=== PATIENT | female | born 1955 | race Caucasian/White ===

== ENCOUNTER → 2020-02-28 10:27 | Outpatient (CLI) | payer OTHER, SELFPAY ==
[2020-02-28 11:30] LABS: Add Manual Diff / Slide Review NO; Basophils Absolute Auto 100 /uL (0-100); Eosinophils Absolute Auto 300 /uL (0-450); Eosinophils Percent Auto 5.3 % (2-4); Hematocrit 37.4 % (36-46); Hemoglobin 12.8 g/dL (12.0-16.0); Lymphocytes Absolute Auto 1600 /uL (1100-4500); Mean Corpuscular HGB Conc 34.2 % (30-36); Mean Corpuscular Hemoglobin 34.3 PG (26-34); Mean Corpuscular Volume 100.2 fL (80-100); Monocytes Absolute Auto 600 /uL (0-900); Monocytes Percent Auto 9.7 % (3-14); Neutrophils Absolute Auto 3700 /uL (1500-7000); Platelet Count 183 X10^3/uL (150-400); Red Blood Cell Count 3.74 X10^6/uL (4.0-5.2); Red Cell Distribution Width 12.7 % (11.6-14.8); White Blood Cell Count 6.3 X10^3/uL (4.5-11.0)
== END ==
PROVIDERS: Family Provider Family Medicine; PCP Family Medicine; Referring Provider Orthopaedic Surgery Orthopaedic Surgery of the Spine; Visit Provider Orthopaedic Surgery Orthopaedic Surgery of the Spine
DX: Z01.812 Encounter for preprocedural laboratory examination (principal); Z01.818 Encounter for other preprocedural examination
CPT/HCPCS: 36415; 85025; 93005

== ENCOUNTER → 2020-03-16 10:04 | Outpatient (CLI) | payer OTHER, SELFPAY ==
[2020-03-16 11:05] LABS: COVID19 -Nasal RAPID Negative (Negative)
== END ==
PROVIDERS: Family Provider Family Medicine; PCP Family Medicine; Visit Provider Nurse Practitioner
DX: Z20.822 Contact with and (suspected) exposure to COVID-19 (principal)
CPT/HCPCS: 87635

== ENCOUNTER 2020-03-18 06:12 | Inpatient (IN) | payer OTHER, SELFPAY ==
[2020-03-12 08:49] VITALS: BMI 28.4
[2020-03-18] VITALS (16 sets, daily range): BP systolic 96–168; BP diastolic 65–91; PULSE 53–91; RESP 8–20; TEMP 36.3–37.2; O2SAT 93–99; BMI 28.4
--- NOTE | 2020-03-18 | DI.RAD.S_ITS ---
PROCEDURE: XR CERVICAL SPINE 2V OR 3V INDICATIONS: C3-4, 4-5, 5-6 ACDF TECHNIQUE: Two intraoperative fluoroscopic view(s) of the cervical spine were acquired. COMPARISON: None. FINDINGS: Bones: Anterior cervical fusion hardware present from C3 through C6. Disc spacer indicators are seen. Bony alignment remains normal. Soft tissues: No prevertebral soft tissue swelling. Endotracheal tube in place. IMPRESSION: Intraoperative fluoroscopy for ACDF three through six. Dictated by: Stephanie Zhu M.D. on 03/18/2020 at 17:03 Approved by: Stephanie Zhu M.D. on 03/18/2020 at 17:04
[2020-03-18] MEDS: LACTATED RINGERS 1,000 ML 42 ML IV ×2 (07:08→10:57)
[2020-03-18] MEDS: ACETAMINOPHEN 325 MG TABLET 975 MG PO (07:35)
--- NOTE | 2020-03-18 07:43 | PM.PREOP ---
Pre-operative Note COVID-19 COVID-19 status: Negative Result date/Date tested (Pos, Neg/Pending): 03/16/20 Interval Note History & Physical reviewed/Exam performed by Physician: Yes Changes to H&P: No
[2020-03-18] MEDS: CEFAZOLIN 2 GM/100 ML FROZ.PIGGY IV ×2 (07:44→17:37)
--- NOTE | 2020-03-18 08:20 | SUR.OPER ---
Supine, head on gel donut. Arms padded with gel pads, tucked at sides, towel roll under shoulders. Safety belt at thigh. Legs uncrossed.
--- NOTE | 2020-03-18 10:56 | PM.OP.1 ---
Operative Date/Time/Diagnoses Date of procedure: 03/18/20 Time of procedure: 08:11 Pre-op diagnosis: 1. C3-4, C4-5, C5-6 spinal stenosis 2. C3-4, C4-5, C5-6 spondylosis with radiculopathy Post-op diagnosis: same Procedure & Clinicians Procedure: 1. C3-4, C4-5, C5-6 anterior cervical diskectomy and fusion 2. C3-4, C4-5, C5-6 anterior interbody cage placement 3. C3-4, C4-5, C5-6 anterior instrumentation with plate and screw placement in C4-C5-C6 and C7 vertebrae 4. Utilization of microsurgical technique and operating microscope Same procedure as scheduled: Yes Indications: Patient has been having chronic neck pain and worsening cervical radiculopathy. Patient failed multiple conservative management with worsening pain weakness and numbness in her upper extremity. Patient has been having difficulty performing activity of daily living. After discussing risks benefits of treatment options, patient elected proceed with surgery. Surgeon: Kristal Elias Business Rules Analyst: Glenda Batista Click Yes if Unassisted: No Anesthesia Type: General Operative Notes Closure Type: primary Specimen(s): none sent Prosthetic devices, grafts, tissues, transplants, or devices: Globus Extend plate, PEEK cages Applied: catheter Estimated Blood Loss (mL): 50 Blood products transfused: none Procedure in detail: Patient was seen in the preoperative area. Risks and benefits of the surgery was discussed with the patient. Operative consent was obtained and placed in the chart. Patient was then taken to the operative room. Prophylactic antibiotic was given less than 0.5 hr prior to skin incision. General anesthesia was administered. Patient was placed into a supine position on her radiolucent table. Bilateral shoulders were taped down to allow proper C-arm imaging. Anterior cervical area was prepped and draped in a sterile fashion. Time-out was performed at this time. Using lateral C-arm imaging, the level between C3 and C6 was identified and marked on patient's neck. A oblique incision from midline towards medial border of sternocleidomastoid muscle was made. The platysma muscle was incised in line with skin incision. Metzenbaum scissor was used to develop the plane between the medial border of sternocleidomastoid d and the strap muscles medially. The carotid sheath and its contents were identified and protected behind the hand-held retractor during the entire case. The plane between the carotid sheath and strap muscles was developed with Metzenbaum scissors. Dissection was made down to the level of the anterior cervical fascia. Longus colli muscle was incised on the anterior aspect of vertebral bodies bilaterally from C3-C6. Spinal needle was placed into the C3-4 disc space and confirmed with lateral C-arm imaging. Using microsurgical technique and operative microscope, anterior cervical diskectomy was performed at C3-4 C4-5 and C5-6 level. This was done by removing the disc material, removing the anterior and posterior osteophytes posterior longitudinal ligaments along with performing bilateral foraminotomies at all 3 levels. Patient was found to have severe central and foraminal stenosis at all 3 levels. Patient's stenosis was fully decompressed after decompression was completed. After the diskectomy was completed, 3 anterior interbody cages were obtained. The cages were packed with DBMl bone grafting material. One cage each along with the bone grafting material was then packed into the interbody spaces from C3-C6 with one cage into each interbody level. After the cages were placed, the anterior cervical plate was stabilized to the C3-C6 vertebrae using 2 screws at each each level. Total 8 screws were placed. After confirming placement of the hardware with AP and lateral C-arm imaging, the screws were locked into the plate using the locking mechanism and torque limiting screwdriver. After the hardware was placed and confirmed with AP and lateral C-arm imaging, the wound was irrigated with sterile normal saline. The platysma muscle and the subcutaneous tissue was closed with 2-0 Vicryl. The skin was closed with 4-0 Monocryl and Steri-Strips. Patient tolerated the procedure well. Patient was transferred recovery room in stable condition. There were no complications. Complications: none Post-operative Condition: stable Disposition: PACU Plan for aftercare: Admit to inpatient hospital
[2020-03-18] MEDS: HYDROMORPHONE 2 MG INJ IV (11:33)
[2020-03-18] MEDS: OXYCODONE IR 5 MG TABLET PO (11:40)
[2020-03-18] MEDS: hydrOXYzine pamoate 25 MG CAPSULE PO (12:05)
--- NOTE | 2020-03-18 12:05 | SUR.PHASEI ---
states that she has had vistaril before and felt like it helped her reduce the amount of narcotic that was needed: given. Tolerating crackers and applesauce well. Pain level stable at 4/10. Good strength bilaterally without numbness. Stable, pleasant, talking without difficulty. Throat scratchy
--- NOTE | 2020-03-18 12:18 | SUR.PHASEI ---
1210 to room 213, bed down and locked, call light within reach, SCD's on. Dressing CDI w/c-collar. Pt awake, oriented, talking, requested cranberry juice. Clothing bag and glasses to the room with her. Spouse arrived on site. No questions from patient or staff.
[2020-03-18] MEDS: SODIUM CHLORIDE 0.9% 1,000 ML 100 ML IV ×2 (12:59→21:27)
[2020-03-18] MEDS: GABAPENTIN 300 MG CAPSULE PO ×2 (14:13→21:09)
[2020-03-18] MEDS: OXYCODONE IR 5 MG TABLET 10 MG PO ×3 (14:14→21:08)
[2020-03-18] MEDS: ACETAMINOPHEN 325 MG TABLET 650 MG PO (14:14)
--- NOTE | 2020-03-18 15:06 | PT.IIE ---
Current Diagnoses Other spondylosis with radiculopathy, cervical region (03/18/20) Spinal stenosis, cervical region (03/18/20) Surgery Performed Operation Date: 03/18/20 07:45 Actual Procedures p C3-4,C4-5,C5-6 ACDF with anterior instrumentation - Kristal Elias MD Surgical History (Last Updated 03/12/20 @ 10:47 by Caroline Cheatham RN) History of arthroplasty of both hips History of arthroscopy of both knees History of bunionectomy of left great toe History of hysterectomy History of lumbar spinal fusion (02/16/17) History of open reduction and internal fixation (ORIF) procedure (~2005) History of surgery History of tonsillectomy and adenoidectomy Hx of appendectomy Hx of exploratory laparotomy (~1979) Hx of hernia repair (11/2017) Hx of lithotripsy (~1988) Medical History (Last Updated 03/12/20 @ 10:51 by Caroline Cheatham RN) Asthma CKD (chronic kidney disease) HTN (hypertension) Kidney stones Lung nodule Numbness and tingling PVCs (premature ventricular contractions) Sciatica Sinus bradycardia Spinal stenosis Physical Therapy Inpatient Evaluation/Re-Eval M1 PT/OT-IP Prior Functional Status Start: 03/18/20 12:59 Freq: NEEDED Status: Active Protocol: Document 03/18/20 15:06 AW (Rec: 03/18/20 15:58 AW [id number]) Medical Review Prior Functional Status Medical History Reviewed Yes Communication WNL. Pt is an effective verbal communicator. Mobility and Gait Pt is independently mobile and regularly traverses her [place] acre property, tending to her gardens and pets. Activities of Daily Living and IADL's Pt reports increased difficulty with upper body dressing but remains independent with all ADL's. 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 Level entrance through back door. Pt goes down to carport/ greenhouse area via 6 steps with no rail but she can touch the wall on one side. Alternatively, there is a ramp to to greenhouse level from another part of the house. Home Environment High Toilet,Walk in Shower, Built-In Shower Seat Home Equipment Front Wheel Walker,Straight Cane,[employer] Taco,Sock Aid,Grab Bars Near Toilet,Grab Bars In Shower Employment Status Retired Additional Social History Comment Pt lives with her spouse, Sandeep . 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 Pt's brother also lives in the house and has been helpful since Sandeep's recent shoulder surgery. M2 PT-IP Current Condition Start: 03/18/20 12:59 Freq: NEEDED Status: Active Protocol: Document 03/18/20 15:06 AW (Rec: 03/18/20 15:58 AW [id number]) Physical Therapy Current Condition Current Condition Evaluation Date 03/18/20 Treatment Diagnosis C3-C6 ACDF; impaired independence with ADL's; weakness Onset Date 03/18/20 Precautions Cervical Spine Precautions Soft Collar for Comfort,No Heavy Lifting M3 PT-IP Subjective Start: 03/18/20 12:59 Freq: NEEDED Status: Active Protocol: Document 03/18/20 15:06 AW (Rec: 03/18/20 15:58 AW [id number]) Subjective Physical Therapy Visit Type Type Initial Evaluation Visit Start Time 14:45 Visit Stop Time 15:06 Total Visit Minutes 21 Physical Therapy Visit Comments Patient Comments Pt is willing to participate with PT Patient Goals Return home with family assist . Therapy Pain Assessment Pain When Pain Assessed During Mobility Pain Present Pain Present Pain Reported Location Neck Scale Used not quantified M4 PT-IP Mobility and Gait Start: 03/18/20 12:59 Freq: NEEDED Status: Active Protocol: Document 03/18/20 15:06 AW (Rec: 03/18/20 15:58 AW [id number]) PT-Bed Mobility Assessment Rolling Type of Rolling Log Rolling,Roll to Right Level of Assist Contact Guard Assistance Supine to Sit Supine to Sit Contact Guard Assistance Scooting Scooting to Edge of Bed Contact Guard Assistance PT-Transfer Assessment Sit to and From Stand Sit to and from Stand Contact Guard Assistance,1 Person Assistance,Use of Upper Extremities Equipment Transfer Assistive Device None,Gait Belt Orthotic/Prosthetic Devices or Brace: Yes Transfers Transfer Destination Chair Transfer Technique Stand Step Pivot Transfer Ability Level of Assist Contact Guard Assistance Comments Mobility Comments Pt was able to log roll to her right side and SL to sit with CGA and cues for sequencing. She stood from the bed CGA and walked to the sink for education on donning and doffing her soft collar. Pt ambulated in the halls without AD SBA to CGA, occasionally reaching for the IV pole to steady herself. On return to the room, pt transferred to the chair CGA. She was positioned with call light and all needs in reach. She agreed to use the call light for all mobility needs. Gait Assessment Gait Gait Assistance Required: Standby Assistance,Contact Guard Assist Distance (Feet) 220 Able to Maintain Weight Bearing Status Yes During Gait Assistive Devices Assistive Device None,Gait Belt Orthotic/Prosthetic Devices or Brace: Yes Gait Deviations General Gait Pattern Antalgic,Decreased Stride Length,Decreased Feet Clearance Factors Limiting Gait Function Factors Limiting Gait Function Pain,Poor Balance Comments Gait Comments See mobility comments for details. Stair Climbing Assessment Comments Stair Climbing Comments Not assessed. PT-Balance Assessment Sitting Balance and Reactions Static Sitting Balance Ability Good Dynamic Sitting Balance Ability Good Standing Balance and Reactions Static Standing Balance Ability Good Dynamic Standing Balance Ability Fair Device Used no AD M5 PT-IP Objective Assessments Start: 03/18/20 12:59 Freq: NEEDED Status: Active Protocol: Document 03/18/20 15:06 AW (Rec: 03/18/20 15:58 AW [id number]) Orientation Orientation/Cognition Level of Alertness Alert Orientation Name,Day of Week,Place, Situation Language Function Ability No Deficits Noted Safety Awareness Understands Safety Issues Memory Description No Deficits Noted Gross Range of Motion Upper Extremity ROM Assessment Within Functional Limits Lower Extremity ROM Assessment Within Functional Limits Strength Upper Extremity Strength Assessment Left Impaired Lower Extremity Strength Assessment Within Functional Limits Coordination Assessment Gross Coordination Gross Coordination WNL Sensation Assessment Sensation Gross Sensation Right UE Impaired,Left UE Impaired Light Touch Impaired Muscle Tone Muscle Tone WNL Yes M6 PT-IP Treatment Start: 03/18/20 12:59 Freq: NEEDED Status: Active Protocol: Document 03/18/20 15:06 AW (Rec: 03/18/20 15:58 AW [id number]) Physical Therapy Treatment Exercises Exercises Wrist ROM,Hand ROM Education Education Provided Precautions,Safety Brace Education [place],Patient Other Treatments Other Treatment Performed Provided education on role of PT, plan of care, donning/ doffing soft collar with mirror for visual feedback. M7 PT-IP Assessment and Plan Start: 03/18/20 12:59 Freq: NEEDED Status: Active Protocol: Document 03/18/20 15:06 AW (Rec: 03/18/20 15:58 AW [id number]) PT Summary Assessment and Plan Potential Rehabilitation Potential Excellent Status of Condition at Evaluation Evolving Summary Impairments Pain,ROM,Balance,Bed Mobility, Transfers,Gait Assessment Summary Ad is a 64yo woman seen for PT evaluation on POD0 following C3-C6 ACDF. She is independent in all regards at baseline. On evaluation, she required CGA for all mobility with mildly unsteady gait. Pt will benefit from continued acute PT to progress safe mobility. PT anticipates she will be safe to discharge home with assist once medically cleared. Goals Bed Mobility Goal Independent Transfer Goal Independent Gait Goal Independent Gait Distance 200 Other Goals - up/down six steps with unilateral rail SBA Days to Meet Goals 2 Frequency of Treatment Frequency Of Treatment Twice a Day Treatment Plan Physical Therapy Treatment Plan Bed Mobility Training,Transfer Training,Gait Training, Therapeutic Exercise,Balance Retraining,Post Op Education, Discharge Planning,Hot or Cold Pack,Neuromuscular Re-ed Recommendations To Nursing Amount of Assist Needed Standby Assistance,1 Person Assist Discharge Recommendations PT Discharge Recommendations Home with Assistance Transportation Needs at Discharge Private Vehicle
--- NOTE | 2020-03-18 16:43 | OT.IP.EVAL ---
Current Diagnoses Other spondylosis with radiculopathy, cervical region (03/18/20) Spinal stenosis, cervical region (03/18/20) Surgery Performed Operation Date: 03/18/20 07:45 Actual Procedures p C3-4,C4-5,C5-6 ACDF with anterior instrumentation - Kristal Elias MD Past Medical History (Last Updated 03/12/20 @ 10:51 by Caroline Cheatham, RN) Asthma CKD (chronic kidney disease) HTN (hypertension) Kidney stones Lung nodule Numbness and tingling PVCs (premature ventricular contractions) Sciatica Sinus bradycardia Spinal stenosis Surgical History (Last Updated 03/12/20 @ 10:47 by Caroline Cheatham RN) History of arthroplasty of both hips History of arthroscopy of both knees History of bunionectomy of left great toe History of hysterectomy History of lumbar spinal fusion (02/16/17) History of open reduction and internal fixation (ORIF) procedure (~2005) History of surgery History of tonsillectomy and adenoidectomy Hx of appendectomy Hx of exploratory laparotomy (~1979) Hx of hernia repair (11/2017) Hx of lithotripsy (~1988) Occupational Therapy Inpatient Evaluation/Re-Eval M1 PT/OT-IP Prior Functional Status Start: 03/18/20 17:05 Freq: NEEDED Status: Active Protocol: Document 03/18/20 16:43 [facility] (Rec: 03/18/20 17:17 [facility] [id number]) Medical Review Prior Functional Status Medical History Reviewed Yes Communication WNL. Pt is an effective verbal communicator. Mobility and Gait Pt is independently mobile and regularly traverses her 7 acre property, tending to her gardens and pets. Activities of Daily Living and IADL's Pt reports increased difficulty with upper body dressing but remains independent with all ADL's. 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 Level entrance through back door. Pt goes down to carport/ greenhouse area via 6 steps with no rail but she can touch the wall on one side. Alternatively, there is a ramp to to greenhouse level from another part of the house. Home Environment High Toilet,Walk in Shower, Built-In Shower Seat Home Equipment Front Wheel Walker,Straight Cane,Roof Bolting Coal Miner,Sock Aid,Grab Bars Near Toilet,Grab Bars In Shower Employment Status Retired Additional Social History Comment Pt lives with her spouse, Sandeep . 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 Pt's brother also lives in the house and has been helpful since Sandeep's recent shoulder surgery. M2 OT-IP Current Condition Start: 03/18/20 17:05 Freq: Status: Active Protocol: Document 03/18/20 16:43 [facility] (Rec: 03/18/20 17:17 [facility] [id number]) Occupational Therapy Current Condition Current Condition Evaluation Date 03/18/20 Treatment Diagnosis Cervical stenosis, s/p C3-4, C4-5, C5-6 ACDF Post Operative Precautions Cervical Spine Precautions Soft Collar for Comfort,No Heavy Lifting,Log Roll M3 OT- IP Subjective and Pain Start: 03/18/20 17:05 Freq: Status: Active Protocol: Document 03/18/20 16:43 [facility] (Rec: 03/18/20 17:17 [facility] [id number]) OT- Subjective Occupational Therapy Visit Type Type Initial Evaluation Visit Start Time 16:15 Visit Stop Time 16:43 Total Visit Minutes 28 Occupational Therapy Visit Comments Patient Comments Pt agreed to do OT eval and just getting out from the bathroom with nursing aid. Patient/Caregiver Goals TO go home. OT Pain Assessment Pain When Pain Assessed At Rest Pain Present Pain Present Pain Reported Location Neck Intensity 2 Scale Used Numeric (0 - 10) M4 OT- IP ADL's Start: 03/18/20 17:05 Freq: Status: Active Protocol: Document 03/18/20 16:43 [facility] (Rec: 03/18/20 17:17 [facility] [id number]) OT [id number] Comments OT Self-Feeding Comments Educated regarding eating upright, chew food thoroughly , eat softer food, and to focus on eating and not get distracted. OT ADL-Grooming General Evaluation Grooming Ability Standby Assistance OT ADL-Oral Care Comments Oral Care Comments Educated to spit into a cup or lean at her hips to spit to bets follow her cervical precautions. OT ADL-Dressing General Eval Lower Body Dressing Ability Standby Assistance Comments OT Dressing Comments Pt states prior stands and leans to the wall to philip/doff her socks. Educated pt to sit for LB dressing needs for safety at this time. OT ADL-Toileting General Evaluation Toileting Ability Independent Comments OT Toileting Comments Educated pt to be mindful of her neck position when wiping. Pt states is aware when she has to go and uses a flashlight or night light at home and her will be there to assist if needed. OT ADL-Bathing Comments OT Bathing Comments Not performed. M5 OT- IP IADL's Start: 03/18/20 17:05 Freq: Status: Active Protocol: Document 03/18/20 16:43 [facility] (Rec: 03/18/20 17:17 [facility] [id number]) OT-Instrumental Activities of Daily Living Home Safety Awareness Awareness of Need for Assistance at Home Good Awareness Ability to Problem Solve Emergency Able to Problem Solve Situations Medication Management Medication Management No Deficits Identified Money Management Money Management No Deficits Identified Meal Preparation Meal Preparation Caregiver Provides Assist [employer] Teacher [employer] Teacher Caregiver Provides Assist M6 OT- IP Functional Cognition Start: 03/18/20 17:05 Freq: Status: Active Protocol: Document 03/18/20 16:43 [facility] (Rec: 03/18/20 17:17 [facility] [id number]) Cognitive Factors Limiting Selfcare Function Cognitive Ability Level of Alertness Alert Patient Orientation Name,Age,Birthday,Month,Date, Year,Day of Week,Place, Situation Attention Span Ability Capable of Focused Attention, Capable of Sustained Attention Ability to Follow Commands Able to Follow Multi-Step Commands Safety Awareness Underestimates Need for Assistance Problem Solving Ability No deficits Noted Cognitive Comments Cognitive Assessment Comments Pt just needing cues to slow down and sit from LB dressing needs. OT- Vision and Hearing OT- Hearing Assessment OT- Hearing Assessment WFL OT- Vision Assessment Visual Acuity Glasses All The Time M7 OT- IP Mobility and Balance Start: 03/18/20 17:05 Freq: Status: Active Protocol: Document 03/18/20 16:43 [facility] (Rec: 03/18/20 17:17 [facility] [id number]) OT-Transfer Assessment Sit to and From Stand Sit to and from Stand Independent Transfers Transfer Ability Independent Technique Transfer Destination Chair,Toilet Devices Transfer Assistive Devices None Comments Mobility Comments SBA in the room for mobility needs. OT- Balance Assessment Sitting Balance and Reactions Static Sitting Balance Ability Normal Dynamic Sitting Balance Ability Normal Standing Balance and Reactions Static Standing Balance Ability Normal Dynamic Standing Balance Ability Good M8 OT- IP Objective Assessments Start: 03/18/20 17:05 Freq: Status: Active Protocol: Document 03/18/20 16:43 [facility] (Rec: 03/18/20 17:17 [facility] [id number]) OT Gross Range of Motion Upper Extremity Range of Motion Assessment Within Functional Limits OT Strength Comments Strength Comments Bilateral group work program director equal but pt is left handed. OT-Muscle Tone Assessment Muscle Tone WNL Yes M9 OT- IP Assessment and Plan Start: 03/18/20 17:05 Freq: Status: Active Protocol: Document 03/18/20 16:43 [facility] (Rec: 03/18/20 17:17 [facility] [id number]) OT Summary Assessment and Plan Potential Rehabilitation Potential Excellent Analytic Complexity at Evaluation Low Summary OT Impairments Pain,Functional Cognition, Functional Mobility,Dressing, Bathing Progress Towards Goals Progressing Toward Goals Assessment Summary Pt low complexity and main barriers are steps and needing to slow down and a little to think through her cervical precautions. Pt has a supportive and looking to go home when medically stable. Goals Grooming Goal Independent Dressing Goal Independent Toileting Goal Independent Bathing Goal Independent Toilet Transfer Goal Independent Shower Transfer Goal Independent Patient/Caregiver Education Goal Demonstrate Post-Op Precautions Days to Meet Goals 2 Frequency of Treatment Frequency Of Treatment Once a Day Treatment Plan OT Treatment Plan ADL Training,Functional Cognition Training,Functional Mobility,Patient/Family Education,Discharge Planning Other Treatment Recommendations and Next shower Treatment Focus Discharge Recommendations OT Discharge Recommendations Home with Assistance Transportation Needs at Discharge Private Vehicle
[2020-03-18] MEDS: lisinopriL 20 MG TABLET PO (17:36)
--- NOTE | 2020-03-18 18:13 | PC.NURSE ---
Addendum entered by Dianne Brennan R.N. 03/18/20 21:44: Med @ 2100 for discomfort. Satisfactory post op course. Call light w/in reach, bed alarm on for pt safety. Continue w/plan of care. Addendum entered by Dianne Brennan R.N. 03/18/20 18:25: Med @ 1740 w/ oxycodone for discomfort w/good relief. Original Note: Pt sitting in chair Lungs clear,SpO2 98% RA Anterior neck dsg intact w/shadow drainage noted. EDDIE patent IVF infusing into right hand via pump w/o incidence. Satisfactory post op course. Call light w/in reach. Pt calls appropriately for needs.
[2020-03-18] MEDS: METOPROLOL IR 50 MG TABLET PO (21:08)
[2020-03-18] MEDS: DOCUSATE 100 MG CAPSULE PO (21:09)
[2020-03-18] MEDS: SENNOSIDES 8.6 MG TABLET 17.2 MG PO (21:09)
[2020-03-18] MEDS: ACYCLOVIR 400 MG TABLET PO (21:26)
[2020-03-19] MEDS: CEFAZOLIN 2 GM/100 ML FROZ.PIGGY IV (00:21)
[2020-03-19 00:25] VITALS: BP 150/83; PULSE 63; RESP 16; TEMP 36.6; O2SAT 97
[2020-03-19] MEDS: OXYCODONE IR 5 MG TABLET 10 MG PO ×5 (00:31→20:26)
[2020-03-19 04:47] VITALS: BP 146/80; PULSE 60; RESP 16; TEMP 36.4; O2SAT 97
--- NOTE | 2020-03-19 06:50 | PC.NURSE ---
Fluids d/cd. Pt tolerating well with adequate intake and output. Pain controlled well with medication regime.
--- NOTE | 2020-03-19 07:37 | P.PN_ITS ---
Subjective Subjective Date Patient Seen: 03/19/20 Time Patient Seen: 07:37 Interval history: Pain is mild. Denies fever or chills. No shortness of breath or chest pain. Tolerating diet. is home to assist her. Exam Vital Signs (past 8 hours): - 03/19/20 00:25 03/19/20 04:47 Temperature 97.9 F 97.6 F Pulse Rate 63 60 Respiratory Rate 16 16 Blood Pressure 150/83 H 146/80 H Pulse Oximetry 97 97 Oxygen Delivery Method Room Air Oxygen Flow Rate 0 Narrative Exam Narrative: Pleasant 64-year-old female standing at bedside in no apparent distress. Drain is intact. Dressing is clean, dry and intact. 5/5 strength all ranges bilateral upper extremities. Sensation grossly intact to light touch bilateral upper extremities. [facility] Medical History Asthma CKD (chronic kidney disease) HTN (hypertension) Kidney stones Lung nodule Numbness and tingling PVCs (premature ventricular contractions) Sciatica Sinus bradycardia Spinal stenosis Surgical History History of arthroplasty of both hips History of arthroscopy of both knees History of bunionectomy of left great toe History of hysterectomy History of lumbar spinal fusion (02/16/17) History of open reduction and internal fixation (ORIF) procedure (~2005) History of surgery History of tonsillectomy and adenoidectomy Hx of appendectomy Hx of exploratory laparotomy (~1979) Hx of hernia repair (11/2017) Hx of lithotripsy (~1988) Social History household members: spouse and family Smoking Status: Former smoker alcohol intake: current Assessment & Plan Post-op Postoperative Procedures: Procedures Operation Date: 03/18/20 07:45 Actual Procedures Side Surgeon p C3-4,C4-5,C5-6 ACDF with anterior instrumentation Kristal Elias MD Postop day 1. Patient progressing as expected. Work with physical therapy. Likely discharge home today. Quality VTE Deep Vein Thrombosis/Pulmonary Embolism Present on Admission: No
[2020-03-19 08:00] VITALS: BP 170/92; PULSE 55; RESP 16; TEMP 36.3; O2SAT 99
[2020-03-19] MEDS: ACYCLOVIR 400 MG TABLET PO (09:04)
[2020-03-19] MEDS: METOPROLOL IR 50 MG TABLET PO ×2 (09:05→20:26)
[2020-03-19] MEDS: GABAPENTIN 300 MG CAPSULE PO ×3 (09:05→20:26)
[2020-03-19] MEDS: DOCUSATE 100 MG CAPSULE PO ×2 (09:05→20:26)
--- NOTE | 2020-03-19 09:22 | ST.IPSCREEN ---
Pt seen following ACDF surgery yesterday. Pt up in bed. provided pt education re: dysphagia and dysphonia related to ACDF surgery. Pt denied any difficulty with either swallowing or voice. Pt encouraged to contact physician is here is any change with either swallowing or voice.. Pt agreed.
--- NOTE | 2020-03-19 09:52 | OT.IPNOTE ---
Touched base with pt for OT needs, pt not wanting to shower , has no further questions for OT and has a supportive to assist. Pt states hopefully looking to discharge home today.
--- NOTE | 2020-03-19 09:55 | CM.DANOTE ---
DCP: Case received, EMR reviewed and met with patient. Introduced self and role. Was able to obtain information from patient regarding her baseline activity status prior to her having surgery. DCP assessment completed with information currently available. Patient is a 64 year old female who admitted yesterday morning to the care of the orthopedic team. PCP: Dr. Rapp. Payer: confirmed: [employer]. Patient came to the hospital via private vehicle for a surgical procedure. She had a cervical diskectomy and fusion. Met with patient in her room. She is alert and oriented, pleasant. She was wearing her neck collar. 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 Her , Sandeep, is also an electrician wiring. She is independent at baseline. Her and her reside in [facility]. Patient has also been able to drive prior to having surgery. P: DCP to continue to follow for any needs. She will continue to work with P.T. She should be able to go home when she is medically stable. Winsome Sheriff RN/Wafer Abrading Machine Tender
--- NOTE | 2020-03-19 10:01 | PT.IPTN ---
Current Diagnoses Other spondylosis with radiculopathy, cervical region (03/18/20) Spinal stenosis, cervical region (03/18/20) Surgery Performed Operation Date: 03/18/20 07:45 Actual Procedures p C3-4,C4-5,C5-6 ACDF with anterior instrumentation - Kristal Elias MD Physical Therapy Treatment Note M2 PT-IP Current Condition Start: 03/18/20 12:59 Freq: NEEDED Status: Active Protocol: Document 03/18/20 15:06 AW (Rec: 03/18/20 15:58 AW [id number]) Physical Therapy Current Condition Current Condition Evaluation Date 03/18/20 Treatment Diagnosis C3-C6 ACDF; impaired independence with ADL's; weakness Onset Date 03/18/20 Precautions Cervical Spine Precautions Soft Collar for Comfort,No Heavy Lifting M3 PT-IP Subjective Start: 03/18/20 12:59 Freq: NEEDED Status: Active Protocol: Document 03/19/20 10:01 AB (Rec: 03/19/20 12:01 AB [email or web address]) Subjective Physical Therapy Visit Type Type Treatment Note Visit Start Time 10:01 Visit Stop Time 10:20 Total Visit Minutes 19 Number of ROLL WRAPPER Visits 0 Physical Therapy Visit Comments Patient Comments pt is agreeable to do PT Therapy Pain Assessment Pain When Pain Assessed At Rest Location Neck Intensity 4 Scale Used Numeric (0 - 10) Pain Management Techniques Modification of Treatment,Re- positioning,Timing of Activity with Medications M4 PT-IP Mobility and Gait Start: 03/18/20 12:59 Freq: NEEDED Status: Active Protocol: Document 03/19/20 10:01 AB (Rec: 03/19/20 12:01 AB [email or web address]) PT-Bed Mobility Assessment Rolling Type of Rolling Log Rolling Level of Assist Standby Assistance Supine to Sit Supine to Sit Standby Assistance Sit to Supine Sit to Supine Standby Assistance PT-Transfer Assessment Sit to and From Stand Sit to and from Stand Standby Assistance Equipment Transfer Assistive Device None,Gait Belt Orthotic/Prosthetic Devices or Brace: No Transfers Transfer Destination Toilet Transfer Technique ambulated without AD Transfer Ability Level of Assist Standby Assistance Gait Assessment Gait Gait Assistance Required: Standby Assistance Distance (Feet) 200 Able to Maintain Weight Bearing Status Yes During Gait Assistive Devices Assistive Device None,Gait Belt Orthotic/Prosthetic Devices or Brace: Yes Gait Deviations General Gait Pattern Antalgic,Flexed Trunk Factors Limiting Gait Function Factors Limiting Gait Function Decreased Activity Tolerance, Decreased Strength,Limited Range of Motion,Pain Comments Gait Comments pt is aware of her precautions and log roll bed mobility. completed supine to sit log roll SBA. requested to use the toilet and ambulated to the toilet without AD SBA. able to complete toileting without assist. ambulated towards the sink SBA without AD and was able to maintain standing while completing handwashing SBA. ambulated in the hallway 200 ft x 2 without SBA . assisted with collar management but stated that her spouse will be able to assist her. educated pt on upright posture. pt with increase thoracic kyphosis. completed scapular retraction with cues. pt requested to go back to bed afterwards and completed sit to supine SBA. M5 PT-IP Objective Assessments Start: 03/18/20 12:59 Freq: NEEDED Status: Active Protocol: Document 03/18/20 15:06 AW (Rec: 03/18/20 15:58 AW [id number]) Orientation Orientation/Cognition Level of Alertness Alert Orientation Name,Day of Week,Place, Situation Language Function Ability No Deficits Noted Safety Awareness Understands Safety Issues Memory Description No Deficits Noted Gross Range of Motion Upper Extremity ROM Assessment Within Functional Limits Lower Extremity ROM Assessment Within Functional Limits Strength Upper Extremity Strength Assessment Left Impaired Lower Extremity Strength Assessment Within Functional Limits Coordination Assessment Gross Coordination Gross Coordination WNL Sensation Assessment Sensation Gross Sensation Right UE Impaired,Left UE Impaired Light Touch Impaired Muscle Tone Muscle Tone WNL Yes M6 PT-IP Treatment Start: 03/18/20 12:59 Freq: NEEDED Status: Active Protocol: Document 03/19/20 10:01 AB (Rec: 03/19/20 12:01 AB [email or web address]) Physical Therapy Treatment Education Education Provided Precautions,Safety M7 PT-IP Assessment and Plan Start: 03/18/20 12:59 Freq: NEEDED Status: Active Protocol: Document 03/19/20 10:01 AB (Rec: 03/19/20 12:01 AB [email or web address]) PT Summary Assessment and Plan Potential Rehabilitation Potential Good Summary Impairments Pain,ROM,Strength,Sensation, Tone,Cognition,Bed Mobility, Transfers,Gait,Activity Tolerance Progress Towards Goals Progressing Toward Goals Assessment Summary pt requiring SBA with mobility and will have her spouse to assist her at home. pt plans to go home today and may go home when medically stable. pt stated that she will use a ramp to enter the house and does not want to do stair climbing training. Goals Bed Mobility Goal Independent Transfer Goal Independent Gait Goal Independent Gait Distance 200 Days to Meet Goals 2 Frequency of Treatment Frequency Of Treatment Twice a Day Treatment Plan Physical Therapy Treatment Plan Bed Mobility Training,Transfer Training,Gait Training, Therapeutic Exercise,Balance Retraining,Post Op Education, Discharge Planning,Hot or Cold Pack,Neuromuscular Re-ed Recommendations To Nursing Amount of Assist Needed Standby Assistance,1 Person Assist Discharge Recommendations PT Discharge Recommendations Home with Assistance Transportation Needs at Discharge Private Vehicle
[2020-03-19 11:05] VITALS: BP 168/80; PULSE 56; RESP 16; TEMP 36.6; O2SAT 99
[2020-03-19] MEDS: MAGNESIUM HYDROXIDE 30 ML UDC PO (12:31)
--- NOTE | 2020-03-19 13:44 | PT.IPTN ---
Current Diagnoses Other spondylosis with radiculopathy, cervical region (03/18/20) Spinal stenosis, cervical region (03/18/20) Surgery Performed Operation Date: 03/18/20 07:45 Actual Procedures p C3-4,C4-5,C5-6 ACDF with anterior instrumentation - Kristal Elias MD Physical Therapy Treatment Note M2 PT-IP Current Condition Start: 03/18/20 12:59 Freq: NEEDED Status: Active Protocol: Document 03/18/20 15:06 AW (Rec: 03/18/20 15:58 AW [id number]) Physical Therapy Current Condition Current Condition Evaluation Date 03/18/20 Treatment Diagnosis C3-C6 ACDF; impaired independence with ADL's; weakness Onset Date 03/18/20 Precautions Cervical Spine Precautions Soft Collar for Comfort,No Heavy Lifting M3 PT-IP Subjective Start: 03/18/20 12:59 Freq: NEEDED Status: Active Protocol: Document 03/19/20 13:44 AB (Rec: 03/19/20 14:28 AB [email or web address]) Subjective Physical Therapy Visit Type Type Treatment Note Visit Start Time 13:44 Visit Stop Time 13:55 Total Visit Minutes 10 Number of HEAD OF MARKETING ANALYTICS Visits 0 Physical Therapy Visit Comments Patient Comments pt is agreeable to do PT Therapy Pain Assessment Pain When Pain Assessed At Rest Pain Present Pain Present Pain Reported Location Neck Scale Used pain scale not stated M4 PT-IP Mobility and Gait Start: 03/18/20 12:59 Freq: NEEDED Status: Active Protocol: Document 03/19/20 13:44 AB (Rec: 03/19/20 14:28 AB [email or web address]) PT-Transfer Assessment Sit to and From Stand Sit to and from Stand Independent Equipment Transfer Assistive Device None Orthotic/Prosthetic Devices or Brace: Yes Gait Assessment Gait Gait Assistance Required: Standby Assistance Distance (Feet) 500 Able to Maintain Weight Bearing Status Yes During Gait Assistive Devices Assistive Device None Orthotic/Prosthetic Devices or Brace: Yes Gait Deviations General Gait Pattern Antalgic,Flexed Trunk Factors Limiting Gait Function Factors Limiting Gait Function Limited Range of Motion,Pain Comments Gait Comments pt agreeable to do PT. completed ambulation without AD SBA >500 ft. completed up/ down steps without rails ascending but uses bilateral rails for descending. pt stated that she has rucker on B side at home that she can hold on to. pt can just use a ramp to enter the house. pt ambulation is steady and without LOB. educated pt on safety and pt is cautious and understood. informed pt that she is cleared to ambulate by herself and just inform nurse if she is needing assistance. informed nurse that PT will d/ c pt and is cleared to be independent. nurse agreed. Stair Climbing Assessment Evaluation Level of Assist On Stairs Standby Assistance Devices Stair Climbing Assistive Devices None,Left Railing,Right Railing Technique/Endurance Stair Climbing Direction Ascend and Descend Stair Climbing Technique Step Over Step Number of Steps Climbed 3 Stair Climbing Set # Repetitions (reps) 1 Comments Stair Climbing Comments pls refer to mobility section for details M5 PT-IP Objective Assessments Start: 03/18/20 12:59 Freq: NEEDED Status: Active Protocol: Document 03/18/20 15:06 AW (Rec: 03/18/20 15:58 AW [id number]) Orientation Orientation/Cognition Level of Alertness Alert Orientation Name,Day of Week,Place, Situation Language Function Ability No Deficits Noted Safety Awareness Understands Safety Issues Memory Description No Deficits Noted Gross Range of Motion Upper Extremity ROM Assessment Within Functional Limits Lower Extremity ROM Assessment Within Functional Limits Strength Upper Extremity Strength Assessment Left Impaired Lower Extremity Strength Assessment Within Functional Limits Coordination Assessment Gross Coordination Gross Coordination WNL Sensation Assessment Sensation Gross Sensation Right UE Impaired,Left UE Impaired Light Touch Impaired Muscle Tone Muscle Tone WNL Yes M6 PT-IP Treatment Start: 03/18/20 12:59 Freq: NEEDED Status: Active Protocol: Document 03/19/20 13:44 AB (Rec: 03/19/20 14:28 AB [email or web address]) Physical Therapy Treatment Education Education Provided Safety M7 PT-IP Assessment and Plan Start: 03/18/20 12:59 Freq: NEEDED Status: Active Protocol: Document 03/19/20 13:44 AB (Rec: 03/19/20 14:28 AB [email or web address]) PT Summary Assessment and Plan Potential Rehabilitation Potential Good Summary Impairments Pain,ROM,Gait Progress Towards Goals Progressing Toward Goals Assessment Summary pt is progressing well with mobility and is cleared to ambulate by herself here in the hospital. nurse is aware and agreed. No further PT intervention indicated at this time. Goals Bed Mobility Goal Independent Transfer Goal Independent Gait Goal Independent Gait Distance 500 Days to Meet Goals 2 Frequency of Treatment Frequency Of Treatment Discharge Treatment Plan Physical Therapy Treatment Plan Bed Mobility Training,Transfer Training,Gait Training, Therapeutic Exercise,Balance Retraining,Post Op Education, Discharge Planning,Hot or Cold Pack,Neuromuscular Re-ed Recommendations To Nursing Amount of Assist Needed Independent Discharge Recommendations PT Discharge Recommendations Home with Assistance Transportation Needs at Discharge Private Vehicle
[2020-03-19] MEDS: ACETAMINOPHEN 325 MG TABLET 650 MG PO (14:07)
[2020-03-19 17:06] VITALS: BP 168/80; PULSE 56
[2020-03-19] MEDS: lisinopriL 20 MG TABLET PO (17:06)
[2020-03-19] MEDS: hydrOXYzine pamoate 25 MG CAPSULE PO (20:26)
[2020-03-19] MEDS: SENNOSIDES 8.6 MG TABLET 17.2 MG PO (20:26)
[2020-03-19] MEDS: ACYCLOVIR 200 MG CAPSULE 400 MG PO (20:26)
[2020-03-19] MEDS: BISACODYL 10 MG SUPP PR (22:02)
[2020-03-20] VITALS (7 sets, daily range): BP systolic 133–164; BP diastolic 74–78; PULSE 64–69; RESP 16–17; TEMP 36.1–37.7; O2SAT 96–98
[2020-03-20] MEDS: OXYCODONE IR 5 MG TABLET 10 MG PO ×4 (02:28→17:34)
[2020-03-20] MEDS: ACETAMINOPHEN 325 MG TABLET 650 MG PO ×2 (06:08→11:30)
[2020-03-20] MEDS: ONDANSETRON 4 MG/2 ML INJ IV (08:06)
--- NOTE | 2020-03-20 08:49 | PC.NURSE ---
At approx 0600, pt reported nausea and vomiting. Just prior, bladder scan revealed a 500 mL residual post-void. Pt nauseated with dry heaving, diaphoretic, red, feeling shills and shakes, and general malaise. Vital signs elevated, temp at 99.F and BP 170s/80s. Tylenol 650 mg given and patient registration supervisor provider Fawn called. Ordered straight cath x1 & PRN zofran for nausea. Straight cath tolerated well, removed 550 mL yellow urine. Pt reported feeling better, nausea controlled with zofran.
--- NOTE | 2020-03-20 09:11 | P.PN_ITS ---
Subjective Subjective Date Patient Seen: 03/20/20 Time Patient Seen: 09:11 Interval history: POD #2 s/p ACDF with Dr. Elias. Patient had a lot of drainage through EDDIE drainage POD 0 and 1. Her drain output was 15 ml overnight. She did start experiencing urinary retention last night and had to be straight cathed. She states after her previous surgery she had to be put on Flomax for 7 days. Her pain is well controlled with Oxycodone and Vistaril. Her biggest complaint is posterior muscle spasms. No complaints of adverse side effects of Vistaril. Exam Vital Signs (past 8 hours): - 03/20/20 05:55 03/20/20 06:10 03/20/20 08:00 Temperature 97.0 F L 99.5 F 98.4 F Pulse Rate 64 68 Respiratory Rate 16 16 Blood Pressure 164/78 H 136/78 Pulse Oximetry 97 98 Oxygen Delivery Method Room Air Oxygen Flow Rate 0 Narrative Exam Narrative: Patient sitting up in bed in NAD. She is alert and oriented X3. Calves are soft, compressible, and nontender bilaterally. SILT throughout BUEs. Radial pulses symmetrical. Air Vice Marshal strength strong and equal. There is shadow drainage on anterior dressing around drain site. [facility] Medical History Asthma CKD (chronic kidney disease) HTN (hypertension) Kidney stones Lung nodule Numbness and tingling PVCs (premature ventricular contractions) Sciatica Sinus bradycardia Spinal stenosis Surgical History History of arthroplasty of both hips History of arthroscopy of both knees History of bunionectomy of left great toe History of hysterectomy History of lumbar spinal fusion (02/16/17) History of open reduction and internal fixation (ORIF) procedure (~2005) History of surgery History of tonsillectomy and adenoidectomy Hx of appendectomy Hx of exploratory laparotomy (~1979) Hx of hernia repair (11/2017) Hx of lithotripsy (~1988) Social History household members: spouse and family Smoking Status: Former smoker alcohol intake: current Assessment & Plan Post-op Postoperative Procedures: Procedures Operation Date: 03/18/20 07:45 Actual Procedures Side Surgeon p C3-4,C4-5,C5-6 ACDF with anterior instrumentation Kristal Elias MD Patient will continue to mobilize with PT today. No excessive bending, lifting, or twisting. Encouraged Vistaril for muscle spasms. She will start flomax today for 7 days. Nursing will check post voiding residuals. Drain will be DCd today with change in dressing. If patient is able to void today she can go home. Quality VTE Deep Vein Thrombosis/Pulmonary Embolism Present on Admission: No
[2020-03-20] MEDS: ACYCLOVIR 200 MG CAPSULE 400 MG PO (09:23)
[2020-03-20] MEDS: TAMSULOSIN 0.4 MG CAPSULE PO (09:23)
[2020-03-20] MEDS: FLEETS ENEMA 1 EACH PR (09:23)
[2020-03-20] MEDS: METOPROLOL IR 50 MG TABLET PO (09:24)
[2020-03-20] MEDS: DOCUSATE 100 MG CAPSULE PO (09:24)
[2020-03-20] MEDS: GABAPENTIN 300 MG CAPSULE PO ×2 (09:24→14:40)
[2020-03-20] MEDS: hydrOXYzine pamoate 25 MG CAPSULE PO (09:26)
--- NOTE | 2020-03-20 09:55 | P.PN_ITS ---
Subjective Subjective Date Patient Seen: 03/20/20 Time Patient Seen: 07:45 Interval history: Patient's pain is mild. She had some nausea this morning and had 1 vomiting episode. No fever chills. Patient was able to urinate 300 mL but still felt like she would need to urinate subsequent bladder scans showed 600 residual and straight cath was completed. She has not had a bowel movement for 2 days and states she feels like she needs to have a bowel movement. Exam Vital Signs (past 8 hours): - 03/20/20 05:55 03/20/20 06:10 03/20/20 08:00 Temperature 97.0 F L 99.5 F 98.4 F Pulse Rate 64 68 Respiratory Rate 16 16 Blood Pressure 164/78 H 136/78 Pulse Oximetry 97 98 Oxygen Delivery Method Room Air Oxygen Flow Rate 0 Drain output over last 24 hours 110 mL Narrative Exam Narrative: Pleasant 64-year-old female resting comfortably in bed in no apparent distress. The cervical dressing is a little moist with serosanguineous drainage. They drain is intact. Sensation grossly intact light touch bilateral upper extremities. Strength is 5/5 bilateral upper extremities. [facility] Medical History Asthma CKD (chronic kidney disease) HTN (hypertension) Kidney stones Lung nodule Numbness and tingling PVCs (premature ventricular contractions) Sciatica Sinus bradycardia Spinal stenosis Surgical History History of arthroplasty of both hips History of arthroscopy of both knees History of bunionectomy of left great toe History of hysterectomy History of lumbar spinal fusion (02/16/17) History of open reduction and internal fixation (ORIF) procedure (~2005) History of surgery History of tonsillectomy and adenoidectomy Hx of appendectomy Hx of exploratory laparotomy (~1979) Hx of hernia repair (11/2017) Hx of lithotripsy (~1988) Social History household members: spouse and family Smoking Status: Former smoker alcohol intake: current Assessment & Plan Post-op Postoperative Procedures: Procedures Operation Date: 03/18/20 07:45 Actual Procedures Side Surgeon p C3-4,C4-5,C5-6 ACDF with anterior instrumentation Kristal Elias MD postop day 2. Mobilize with physical therapy. Continue monitor drain output. One strain is less than 20 cc may remove. She has been given some antiemetics. After discussion regarding her constipation they have tried several alternatives to assist her in moving her bowels. Will go ahead and order enema. Discharge likely tomorrow but depends on her drain output. Quality VTE Deep Vein Thrombosis/Pulmonary Embolism Present on Admission: No
[2020-03-20] MEDS: BISACODYL 10 MG SUPP PR (11:30)
[2020-03-20] MEDS: MAGNESIUM HYDROXIDE 30 ML UDC PO (14:46)
--- NOTE | 2020-03-20 14:59 | PC.NURSE ---
Addendum entered by Arun uHitron R.N. 03/20/20 15:11: Patient had a moderate runny BM at 1511 Original Note: Patient has had fleet enema, dulcolax supp., multiple glasses of prune juice, milk of magnesia, and still no BM. Patient continues to have post void residuals in the 300'scc's. Dressing was changed today per Fanny BEDOYA, and EDDIE drain was taken out. Patient has a small fever 99.3. Lung sounds clear. 1500, left Fanny LOCK to call here to discus options.
--- NOTE | 2020-03-20 16:33 | PM.PN.1 ---
Exam Vital Signs (past 8 hours): - 03/20/20 11:30 03/20/20 13:00 03/20/20 15:33 Temperature 99.9 F H 98 F 98.9 F Pulse Rate 67 69 Respiratory Rate 16 17 Blood Pressure 138/76 133/74 Pulse Oximetry 97 96 Oxygen Delivery Method Room Air Oxygen Flow Rate 0 PFSH Medical History Asthma CKD (chronic kidney disease) HTN (hypertension) Kidney stones Lung nodule Numbness and tingling PVCs (premature ventricular contractions) Sciatica Sinus bradycardia Spinal stenosis Surgical History History of arthroplasty of both hips History of arthroscopy of both knees History of bunionectomy of left great toe History of hysterectomy History of lumbar spinal fusion (02/16/17) History of open reduction and internal fixation (ORIF) procedure (~2005) History of surgery History of tonsillectomy and adenoidectomy Hx of appendectomy Hx of exploratory laparotomy (~1979) Hx of hernia repair (11/2017) Hx of lithotripsy (~1988) Social History household members: spouse and family Smoking Status: Former smoker alcohol intake: current Assessment & Plan Assessment & Plan narrative: Patient's pain is controlled with oral medication. EDDIE drain was discontinue with minimum output. Pt had episode of urniary retention s/p straight cath and has been voiding since noon without need to be catheterized. Will discharge to home today. Cleared by PT/OT for discharge to home. Quality VTE Deep Vein Thrombosis/Pulmonary Embolism Present on Admission: No
[2020-03-20] MEDS: lisinopriL 20 MG TABLET PO (17:34)
--- NOTE | 2020-03-20 18:03 | PC.NURSE ---
Discharge Note- Patient discharged home per Dr Elias. Discharge instructions and educations reviewed with patient and signed. IV line removed and bandage applied. Patient dressed self and packed up all personal belongings. PRN PO Oxycodone given per patient request for pain at 4-5/10 prior to leaving and car ride home. Written Rx given to patient. Patient left via wheelchair to private car, with at her side and all personal belongings at 1750.
== END 2020-03-20 17:50 | disposition home or self-care (01) | DRG 473 ==
PROVIDERS: Admitting Provider Orthopaedic Surgery Orthopaedic Surgery of the Spine; Family Provider Family Medicine; PCP Family Medicine; Referring Provider Family Medicine; Visit Provider Orthopaedic Surgery Orthopaedic Surgery of the Spine
PROC: 0RG20A0 Fusion of 2 or more Cervical Vertebral Joints with Interbody Fusion Device, Anterior Approach, Anterior Column, Open Approach (ICD-10-PCS; principal; 2020-03-18 07:45)
DX: M48.02 Spinal stenosis, cervical region (principal); I10 Essential (primary) hypertension; I49.3 Ventricular premature depolarization; J45.909 Unspecified asthma, uncomplicated; M47.22 Other spondylosis with radiculopathy, cervical region; G89.29 Other chronic pain; Z87.891 Personal history of nicotine dependence; Z20.822 Contact with and (suspected) exposure to COVID-19; R33.9 Retention of urine, unspecified; M62.838 Other muscle spasm
CPT/HCPCS: 72040; 76000; 82962; 87635; 97116; 97161; 97165; 97535; C1776; C9803; J0690; J1100; J1170; J2250; J2405; J2704; J3010